=== PATIENT | male | born 1975 | race Caucasian/White ===

== ENCOUNTER → 2017-07-10 11:04 | Outpatient (CLI) | payer OTHER, SELFPAY ==
[2017-07-10 11:37] LABS: Hematocrit 46.9 % (42.0-52.0)
[2017-07-10 13:22] LABS: Alanine Aminotransferase 51 U/L (12-78); Albumin Level 4.5 gm/dL (3.4-5.0); Albumin/Globulin Ratio 1.4 (1.1-1.8); Alkaline Phosphatase 58 U/L (46-116); Anion Gap 12.6 mEq/L (5-15); Aspartate Amino Transferase 15 U/L (15-37); Bilirubin,Total 0.5 mg/dL (0.2-1.0); Blood Urea Nitrogen 20 mg/dL (7-18); Calcium 9.6 mg/dL (8.5-10.1); Carbon Dioxide 30 mmol/L (21.0-32.0); Chloride 103 mmol/L (98-107); Chol/HDL Ratio 5.4 (1-3.5); Cholesterol 241 mg/dL (140-200); Creatinine,Serum 1.18 mg/dL (0.70-1.30); Estimated Glomerular Filt Rate 67 ml/min (>60); GFR (African American) 81 ML/MIN (>60); Globulin 3.3 gm/dl (1.3-3.2); Glucose 117 mg/dL (74-106); HDL Cholesterol 45 mg/dL (27-67); LDL Cholesterol 154 mg/dL (0-130); Potassium 4.6 mmoL/L (3.5-5.1); Sodium 141 mmol/L (136-145); Total Protein,Serum 7.8 gm/dL (6.4-8.2); Triglycerides 212 mg/dL (30-200); VLDL Cholesterol 42 mg/dL (0-40)
== END ==
PROVIDERS: Visit Provider Internal Medicine
DX: E78.5 Hyperlipidemia, unspecified (principal); I10 Essential (primary) hypertension
CPT/HCPCS: 36415; 80053; 80061; 85014

== ENCOUNTER → 2017-10-27 11:12 | Outpatient (CLI) | payer OTHER, SELFPAY ==
[2017-10-27 11:38] LABS: Hemoglobin A1C 6.2 % (0.0-7.0)
[2017-10-27 11:49] LABS: Hematocrit 45.4 % (42.0-52.0)
[2017-10-27 12:13] LABS: Alanine Aminotransferase 75 U/L (12-78); Albumin Level 4.3 gm/dL (3.4-5.0); Albumin/Globulin Ratio 1.4 (1.1-1.8); Alkaline Phosphatase 62 U/L (46-116); Aspartate Amino Transferase 23 U/L (15-37); Bilirubin,Total 0.5 mg/dL (0.2-1.0); Blood Urea Nitrogen 15 mg/dL (7-18); Calcium 9.2 mg/dL (8.5-10.1); Carbon Dioxide 29 mmol/L (21.0-32.0); Chloride 106 mmol/L (98-107); Chol/HDL Ratio 3.6 (1-3.5); Cholesterol 176 mg/dL (140-200); Creatinine,Serum 1.12 mg/dL (0.70-1.30); Estimated Glomerular Filt Rate 71 ml/min (>60); GFR (African American) 86 ML/MIN (>60); Globulin 3.1 gm/dl (1.3-3.2); Glucose 135 mg/dL (74-106); HDL Cholesterol 49 mg/dL (27-67); LDL Cholesterol 90 mg/dL (0-130); Sodium 143 mmol/L (136-145); Total Protein,Serum 7.4 gm/dL (6.4-8.2); Triglycerides 185 mg/dL (30-200); VLDL Cholesterol 37 mg/dL (0-40)
== END ==
PROVIDERS: Visit Provider Internal Medicine
DX: E78.5 Hyperlipidemia, unspecified (principal); I10 Essential (primary) hypertension
CPT/HCPCS: 36415; 80053; 80061; 83036; 85014

== ENCOUNTER → 2018-01-04 17:09 | Outpatient (REF) | payer OTHER, SELFPAY ==
[2018-01-04 18:54] LABS: Uric Acid 7.1 mg/dL (2.6-7.2)
== END ==
LOC: LAB 17:09
PROVIDERS: Visit Provider Internal Medicine
DX: M10.9 Gout, unspecified (principal)
CPT/HCPCS: 84550

== ENCOUNTER → 2018-05-20 14:59 | Outpatient (CLI) | payer OTHER, SELFPAY ==
--- NOTE | 2018-05-20 15:02 | XR_ITS ---
XR elbow LT min 3V HISTORY: ITS.REASON: left elbow pain ORDERING PHYSICIAN: Flori Matta MD PATIENT AGE: 43 years COMPARISON: None FINDINGS: No fracture or dislocation. No significant arthritic change or displaced fat pad. A small enthesophyte is present at the olecranon region IMPRESSION: No acute finding
== END ==
PROVIDERS: PCP Internal Medicine; Visit Provider Orthopaedic Surgery
DX: M77.12 Lateral epicondylitis, left elbow (principal); M25.522 Pain in left elbow
CPT/HCPCS: 73080

== ENCOUNTER → 2018-08-01 14:54 | Outpatient (CLI) | payer OTHER, SELFPAY ==
--- NOTE | 2018-08-01 14:57 | MR_ITS ---
MR elbow LT wo con CLINICAL INDICATION: Left elbow pain ITS.REASON: lt elbow pain ORDERING PHYSICIAN: Flori Matta MD PATIENT AGE: 43 years Comparison: 05/20/2018 TECHNIQUE: Routine multiplanar multiecho sequences are obtained without contrast. FINDINGS: There is excessive patient motion artifact which does limit exam. Motion is present on every image. IMPRESSION: No obvious fracture. Small amount fluid is present in the elbow joint. Ligamentous evaluation is limited due to the motion artifact. The ulnar collateral ligament appears grossly unremarkable.. There is some mild lateral subluxation of the radial head possibly due to patient positioning there is questionable tear of the superior aspect of the lateral collateral ligament edema is also noted within the proximal aspect of the common extensor tendon with some bone marrow edema adjacent to this region consistent with lateral epicondylitis. Common flexor tendon appears intact. Bicipital tendon and brachioradialis tendon have an unremarkable appearance IMPRESSION: 1. Limited exam due to motion artifact. 2. The findings are compatible with lateral epicondylitis. 3. There may be a tear of the superior aspect of the radial collateral ligament. This could be artifactual as well due to motion. Consider repeat exam when patient is more able to lie still for confirmation
== END ==
PROVIDERS: PCP Internal Medicine; Visit Provider Orthopaedic Surgery
DX: M77.10 Lateral epicondylitis, unspecified elbow (principal)
CPT/HCPCS: 73221

== ENCOUNTER → 2019-11-17 09:46 | Outpatient (CLI) | payer OTHER, SELFPAY ==
[2019-11-17 11:31] LABS: Alanine Aminotransferase 29 U/L (12-78); Albumin Level 4.8 g/dl (3.5-5.0); Albumin/Globulin Ratio 1.9 (1.1-1.8); Alkaline Phosphatase 48 U/L (38-126); Anion Gap 15.2 mEq/L (5-15); Aspartate Amino Transferase 27 U/L (17-59); Bilirubin,Total 0.5 mg/dl (0.2-1.3); Blood Urea Nitrogen 23 mg/dl (9-20); Calcium 9.8 mg/dl (8.4-10.2); Carbon Dioxide 28 mmol/L (22.0-30.0); Chloride 102 mmol/L (98-107); Chol/HDL Ratio 3.2 (1-3.5); Cholesterol 184 mg/dl (140-200); Estimated Glomerular Filt Rate 65 ml/min (>60); GFR (African American) 79 ML/MIN (>60); Globulin 2.5 g/dL (1.3-3.2); Glucose 135 mg/dl (74-100); HDL Cholesterol 57 mg/dl (40-60); Potassium 4.2 mmoL/L (3.5-5.1); Sodium 141 mmol/L (136-145); Total Protein,Serum 7.3 g/dl (6.3-8.2); Triglycerides 146 mg/dl (30-150); Uric Acid 5.5 mg/dl (3.5-8.5); VLDL Cholesterol 29 mg/dL (0-40)
[2019-11-17 11:42] LABS: Direct LDL Cholesterol 120.56 mg/dL (100-129)
[2019-11-17 11:53] LABS: Hemoglobin A1C 6.9 % (4.0-6.0)
== END ==
PROVIDERS: Visit Provider Internal Medicine
DX: E11.9 Type 2 diabetes mellitus without complications (principal); E78.5 Hyperlipidemia, unspecified; I10 Essential (primary) hypertension
CPT/HCPCS: 36415; 80053; 80061; 83036; 84550

== ENCOUNTER → 2020-10-14 16:42 | Outpatient (CLI) | payer OTHER, SELFPAY ==
[2020-10-14 18:14] LABS: Basophils # 0.1 K/mm3 (0-0.2); Basophils % 1.2 % (0.1-2.0); Eosinophils # 0.4 K/mm3 (0.0-0.4); Hematocrit 42.2 % (42.0-52.0); Hemoglobin 14.5 g/dL (14.1-18.0); Lymphocytes # 1.9 K/mm3 (0.7-4.5); Lymphocytes % 25.3 % (10-50); Mean Corpuscular HGB Conc 34.3 g/dL (31.8-35.4); Mean Corpuscular Hemoglobin 29.4 pg (27.0-31.2); Mean Corpuscular Volume 85.7 fl (80-94); Mean Platelet Volume 7.8 fl (7.4-10.4); Monocytes # 0.4 K/mm3 (0.1-1.0); Monocytes % 5.4 % (1.7-9.3); Neutrophils # 4.7 K/mm3 (1.8-7.8); Neutrophils % 62.2 % (37.0-80.0); Platelet Count 227 K/mm3 (142-424); Red Blood Count 4.92 M/mm3 (4.60-6.20); Red Cell Distribution Width 12.7 % (11.5-17.5); White Blood Count 7.5 K/mm3 (4.8-10.8)
[2020-10-14 18:36] LABS: Alanine Aminotransferase 60 U/L (12-78); Albumin Level 4.9 g/dl (3.5-5.0); Albumin/Globulin Ratio 2.1 (1.1-1.8); Alkaline Phosphatase 50 U/L (38-126); Anion Gap 17.4 mEq/L (5-15); Aspartate Amino Transferase 34 U/L (17-59); Bilirubin,Total 0.4 mg/dl (0.2-1.3); Blood Urea Nitrogen 19 mg/dl (9-20); Calcium 9.5 mg/dl (8.4-10.2); Carbon Dioxide 28 mmol/L (22.0-30.0); Chloride 100 mmol/L (98-107); Cholesterol 180 mg/dl (140-200); Estimated Glomerular Filt Rate 72 ml/min (>60); GFR (African American) 87 ML/MIN (>60); Globulin 2.3 g/dL (1.3-3.2); Glucose 244 mg/dl (74-100); HDL Cholesterol 45 mg/dl (40-60); Potassium 4.4 mmoL/L (3.5-5.1); Sodium 141 mmol/L (136-145); Total Protein,Serum 7.2 g/dl (6.3-8.2); Triglycerides 227 mg/dl (30-150); Uric Acid 4.6 mg/dl (3.5-8.5); VLDL Cholesterol 45 mg/dL (0-40)
[2020-10-14 18:39] LABS: Hemoglobin A1C 8.2 % (4.0-6.0)
[2020-10-14 18:47] LABS: Direct LDL Cholesterol 112.95 mg/dL (100-129)
== END ==
PROVIDERS: Visit Provider Internal Medicine
DX: E11.9 Type 2 diabetes mellitus without complications (principal); I10 Essential (primary) hypertension; E78.5 Hyperlipidemia, unspecified; M10.9 Gout, unspecified
CPT/HCPCS: 80053; 80061; 82043; 83036; 84550; 85025

== ENCOUNTER → 2021-05-23 13:50 | Outpatient (CLI) | payer OTHER, SELFPAY ==
[2021-05-23 16:06] LABS: Hemoglobin A1C 7.1 % (4.0-6.0)
[2021-05-23 16:35] LABS: Alanine Aminotransferase 62 U/L (12-78); Albumin Level 5.2 g/dl (3.5-5.0); Albumin/Globulin Ratio 2.2 (1.1-1.8); Alkaline Phosphatase 53 U/L (38-126); Anion Gap 16.7 mEq/L (5-15); Aspartate Amino Transferase 40 U/L (17-59); Bilirubin,Total 0.7 mg/dl (0.2-1.3); Blood Urea Nitrogen 16 mg/dl (9-20); Calcium 9.5 mg/dl (8.4-10.2); Carbon Dioxide 26 mmol/L (22.0-30.0); Chloride 101 mmol/L (98-107); Cholesterol 211 mg/dl (140-200); Estimated Glomerular Filt Rate 90 ml/min (>60); GFR (African American) 109 ML/MIN (>60); Globulin 2.4 g/dL (1.3-3.2); Glucose 108 mg/dl (74-100); HDL Cholesterol 53 mg/dl (40-60); Potassium 3.7 mmoL/L (3.5-5.1); Sodium 140 mmol/L (136-145); Total Protein,Serum 7.6 g/dl (6.3-8.2); Triglycerides 217 mg/dl (30-150); Uric Acid 6.2 mg/dl (3.5-8.5); VLDL Cholesterol 43 mg/dL (0-40)
[2021-05-23 16:46] LABS: Direct LDL Cholesterol 137.43 mg/dL (100-129)
== END ==
PROVIDERS: Visit Provider Internal Medicine
DX: I10 Essential (primary) hypertension (principal); E11.9 Type 2 diabetes mellitus without complications; E78.5 Hyperlipidemia, unspecified; M10.9 Gout, unspecified
CPT/HCPCS: 80053; 80061; 83036; 84550

== ENCOUNTER → 2021-10-07 14:31 | Outpatient (CLI) | payer OTHER, SELFPAY | PROVIDERS: PCP Internal Medicine; Visit Provider Internal Medicine Gastroenterology | DX: Z01.812 Encounter for preprocedural laboratory examination (principal); Z20.822 Contact with and (suspected) exposure to COVID-19; Z12.11 Encounter for screening for malignant neoplasm of colon | CPT/HCPCS: C9803; U0003; U0005 ==

== ENCOUNTER 2021-10-09 07:50 | Day surgery (SDC) | payer OTHER, SELFPAY ==
[2021-10-09 08:02] VITALS: BP 157/100; PULSE 80; RESP 18; TEMP 36.4; O2SAT 100; BMI 30.8
--- NOTE | 2021-10-09 08:18 | P.PN_ITS ---
[facility] Anesthesia Checklist - Patient Identification Patient Identification: Arm Band - Structural Data Admitted From: Home Planned Operative Procedure/s: Colonoscopy Consent for Planned Operative Procedure(s) Verified: Yes - NPO Status Verified Time NPO: 05:30 - Airway Assessment C-Spine Mobility Assessed: Yes TMJ Mobility Assessed: Yes Dentition: Good Dentition - Neurological Assessment Level of Consciousness: Awake Hx Seizures: No Numbness or tingling in extremities: No - Anesthesia Plan Anesthesia Risk discussed: Yes Anesthesia Plan: Verified ASA Class: II Anesthesia Type: MAC [facility] History I have reviewed the patient's past medical history: Yes Medical History: Reports:: Gastroesophageal Reflux Disease(GERD), Hyperlipidemia, Hypertension Denies:: Cancer, Diabetes Mellitus Type 1, Diabetes Mellitus Type 2, Internal Pacemaker, MRSA, Seizures *Have you ever received a pneumonia vaccine?: No *Have you received a flu vaccine this season?: No Anesthesia experience/problems:: None Laterality Cases: Right: Arthroscopy Knee, Other, Bilateral: Tonsillectomy Other Surgeries: No: Pacemaker Amputation: No Fractures: Yes - *Social History Last grade of school completed: Some college Smoking Status: Current every day smoker Tobacco Type: smokeless tobacco # Packs/Day (cigarettes): 1 Alcohol Intake: current Alcohol Intake Frequency:: a few times a week Substance Use Type: denies use *Occupational Status:: employed Housing: house Household Members: spouse, family *Travel in the last 8 weeks: None Family Hx:: Diabetes, Hypertension
[2021-10-09 08:22] LABS: POC Glucose,Bedside 137 (70-110)
[2021-10-09 08:52] VITALS: O2SAT 100
[2021-10-09 09:06] VITALS: BP 131/75; PULSE 63; RESP 18; TEMP 36.5; O2SAT 95
--- NOTE | 2021-10-09 09:06 | HMH.SCOPE ---
- Procedure: Date: 10/09/21 Patient Date of :: 1975 Procedure Performed:: Screening colonoscopy Indications:: At appropriate age for colon screening Performing Provider:: Avril Coon MD Referring Provider:: Louie Barrow Sedation:: Propofol Procedure:: After placing the patient in the left lateral decubitus position, the colonoscopy was gently inserted into the rectum and under direct visualization advanced to the cecum which was identified by transillumination in the right lower quadrant, identification of the ileocecal valve, appendiceal orifice, and cecal strap. Color, texture, mucosa, and anatomy of the colon were carefully examined with the scope. Findings:: Anal canal: normal Rectum: normal Sigmoid colon: normal without polyps or inflammatory changes Descending colon: normal without polyps or inflammatory changes Splenic flexure: normal Transverse colon: normal without polyps or inflammatory changes Hepatic flexure: normal Ascending colon: normal without polyps or inflammatory changes Cecum: normal Terminal ileum: not visualized Impression: Normal colonoscopy Recommendations:: Follow up examination in about TEN years or so, sooner if clinically indicated. Complications:: None Estimated blood obtained (mL): 0
[2021-10-09 09:12] VITALS: BP 121/78; PULSE 63; RESP 18; O2SAT 97
[2021-10-09 09:17] VITALS: BP 120/81; PULSE 69; RESP 18; O2SAT 98
[2021-10-09 09:31] VITALS: BP 115/75; PULSE 64; RESP 18; O2SAT 99
== END 2021-10-09 09:31 ==
LOC: OUTP 07:51
PROVIDERS: PCP Internal Medicine; Visit Provider Internal Medicine Gastroenterology
PROC: 0DJD8ZZ Inspection of Lower Intestinal Tract, Via Natural or Artificial Opening Endoscopic (ICD-10-PCS; CPT 45378; principal; 2021-10-09 09:00)
DX: Z12.11 Encounter for screening for malignant neoplasm of colon (principal); K21.9 Gastro-esophageal reflux disease without esophagitis; E78.5 Hyperlipidemia, unspecified; I10 Essential (primary) hypertension; Z72.0 Tobacco use; Z79.899 Other long term (current) drug therapy
CPT/HCPCS: 45378; 82962

== ENCOUNTER → 2021-12-26 14:19 | Outpatient (CLI) | payer OTHER, SELFPAY ==
[2021-12-26 14:50] LABS: Basophils # 0.1 K/mm3 (0-0.2); Basophils % 1.2 % (0.1-2.0); Eosinophils # 0.5 K/mm3 (0.0-0.4); Eosinophils % 7.3 % (0.1-12.0); Hematocrit 45.6 % (42.0-52.0); Lymphocytes # 1.5 K/mm3 (0.7-4.5); Lymphocytes % 24.3 % (10-50); Mean Corpuscular HGB Conc 32.9 g/dL (31.8-35.4); Mean Corpuscular Hemoglobin 30.3 pg (27.0-31.2); Mean Corpuscular Volume 91.9 fl (80-94); Mean Platelet Volume 8.5 fl (7.4-10.4); Monocytes # 0.3 K/mm3 (0.1-1.0); Neutrophils # 3.8 K/mm3 (1.8-7.8); Neutrophils % 62.2 % (37.0-80.0); Platelet Count 258 K/mm3 (142-424); Red Blood Count 4.96 M/mm3 (4.60-6.20); Red Cell Distribution Width 12.6 % (11.5-17.5); White Blood Count 6.2 K/mm3 (4.8-10.8)
[2021-12-26 15:15] LABS: Alanine Aminotransferase 67 U/L (12-78); Albumin Level 4.4 g/dl (3.5-5.0); Albumin/Globulin Ratio 1.8 (1.1-1.8); Alkaline Phosphatase 62 U/L (38-126); Anion Gap 14.2 mEq/L (5-15); Aspartate Amino Transferase 49 U/L (17-59); Bilirubin,Total 0.3 mg/dl (0.2-1.3); Blood Urea Nitrogen 13 mg/dl (9-20); Calcium 8.9 mg/dl (8.4-10.2); Carbon Dioxide 27 mmol/L (22.0-30.0); Chloride 101 mmol/L (98-107); Chol/HDL Ratio 4.2 (1-3.5); Cholesterol 191 mg/dl (140-200); Estimated Glomerular Filt Rate 80 ml/min (>60); GFR (African American) 97 ML/MIN (>60); Globulin 2.5 g/dL (1.3-3.2); Glucose 139 mg/dl (74-100); HDL Cholesterol 45 mg/dl (40-60); Potassium 4.2 mmoL/L (3.5-5.1); Sodium 138 mmol/L (136-145); Total Protein,Serum 6.9 g/dl (6.3-8.2); Triglycerides 212 mg/dl (30-150); Uric Acid 5.7 mg/dl (3.5-8.5); VLDL Cholesterol 42 mg/dL (0-40)
[2021-12-26 15:26] LABS: Direct LDL Cholesterol 121.14 mg/dL (100-129)
[2021-12-26 15:41] LABS: Microalbumin/Creatinine Ratio 80.1
[2021-12-26 15:42] LABS: Creatinine,Urine Random 74 mg/dL (Not Estab.)
== END ==
PROVIDERS: PCP Internal Medicine; Visit Provider Internal Medicine
DX: I10 Essential (primary) hypertension (principal); E78.5 Hyperlipidemia, unspecified; E11.9 Type 2 diabetes mellitus without complications; M10.9 Gout, unspecified; Z79.84 Long term (current) use of oral hypoglycemic drugs
CPT/HCPCS: 80053; 80061; 82043; 82570; 84550; 85025

== ENCOUNTER → 2022-05-08 13:19 | Outpatient (CLI) | payer OTHER, SELFPAY ==
[2022-05-08 15:58] LABS: Alanine Aminotransferase 57 U/L (12-78); Albumin Level 4.8 g/dl (3.5-5.0); Albumin/Globulin Ratio 2.1 (1.1-1.8); Alkaline Phosphatase 44 U/L (38-126); Anion Gap 14.2 mEq/L (5-15); Aspartate Amino Transferase 37 U/L (17-59); Bilirubin,Total 0.5 mg/dl (0.2-1.3); Blood Urea Nitrogen 19 mg/dl (9-20); Calcium 9.1 mg/dl (8.4-10.2); Carbon Dioxide 28 mmol/L (22.0-30.0); Chloride 104 mmol/L (98-107); Cholesterol 156 mg/dl (140-200); Estimated Glomerular Filt Rate 71 ml/min (>60); GFR (African American) 86 ML/MIN (>60); Globulin 2.3 g/dL (1.3-3.2); Glucose 186 mg/dl (74-100); HDL Cholesterol 39 mg/dl (40-60); Potassium 4.2 mmoL/L (3.5-5.1); Sodium 142 mmol/L (136-145); Total Protein,Serum 7.1 g/dl (6.3-8.2); Triglycerides 111 mg/dl (30-150); Uric Acid 5.1 mg/dl (3.5-8.5); VLDL Cholesterol 22 mg/dL (0-40)
== END ==
PROVIDERS: PCP Internal Medicine; Visit Provider Internal Medicine
DX: I10 Essential (primary) hypertension (principal); E78.5 Hyperlipidemia, unspecified; M10.9 Gout, unspecified; F17.220 Nicotine dependence, chewing tobacco, uncomplicated
CPT/HCPCS: 80053; 80061; 84550

== ENCOUNTER → 2022-08-07 12:03 | Outpatient (CLI) | payer OTHER, SELFPAY ==
[2022-08-07 13:52] LABS: Hemoglobin A1C 8.6 % (4.0-6.0)
== END ==
PROVIDERS: PCP Internal Medicine; Visit Provider Internal Medicine
DX: E11.9 Type 2 diabetes mellitus without complications (principal); I10 Essential (primary) hypertension; Z79.84 Long term (current) use of oral hypoglycemic drugs
CPT/HCPCS: 83036

== ENCOUNTER → 2022-11-06 15:24 | Outpatient (CLI) | payer OTHER, SELFPAY ==
[2022-11-06 16:07] LABS: Basophils % 0.7 % (0.1-2.0); Eosinophils # 0.4 K/mm3 (0.0-0.4); Eosinophils % 6.8 % (0.1-12.0); Hematocrit 44.5 % (42.0-52.0); Hemoglobin 14.4 g/dL (14.1-18.0); Lymphocytes # 1.8 K/mm3 (0.7-4.5); Lymphocytes % 34.2 % (10-50); Mean Corpuscular HGB Conc 32.4 g/dL (31.8-35.4); Mean Corpuscular Hemoglobin 27.8 pg (27.0-31.2); Mean Corpuscular Volume 85.8 fl (80-94); Mean Platelet Volume 8.7 fl (7.4-10.4); Monocytes # 0.3 K/mm3 (0.1-1.0); Monocytes % 5.2 % (1.7-9.3); Neutrophils # 2.8 K/mm3 (1.8-7.8); Neutrophils % 53.1 % (37.0-80.0); Platelet Count 213 K/mm3 (142-424); Red Blood Count 5.18 M/mm3 (4.60-6.20); White Blood Count 5.3 K/mm3 (4.8-10.8)
[2022-11-06 16:43] LABS: Hemoglobin A1C 6.7 % (4.0-6.0)
[2022-11-06 16:53] LABS: Alanine Aminotransferase 36 U/L (12-78); Albumin Level 5.1 g/dl (3.5-5.0); Albumin/Globulin Ratio 2.2 (1.1-1.8); Alkaline Phosphatase 37 U/L (38-126); Anion Gap 16.2 mEq/L (5-15); Aspartate Amino Transferase 27 U/L (17-59); Bilirubin,Total 0.4 mg/dl (0.2-1.3); Blood Urea Nitrogen 19 mg/dl (9-20); Calcium 9.5 mg/dl (8.4-10.2); Carbon Dioxide 28 mmol/L (22.0-30.0); Chloride 104 mmol/L (98-107); Chol/HDL Ratio 3.2 (1-3.5); Cholesterol 149 mg/dl (140-200); Estimated Glomerular Filt Rate 71 ml/min (>60); GFR (African American) 86 ML/MIN (>60); Globulin 2.3 g/dL (1.3-3.2); Glucose 92 mg/dl (74-100); HDL Cholesterol 47 mg/dl (40-60); Potassium 4.2 mmoL/L (3.5-5.1); Sodium 144 mmol/L (136-145); Total Protein,Serum 7.4 g/dl (6.3-8.2); Triglycerides 64 mg/dl (30-150); VLDL Cholesterol 13 mg/dL (0-40)
[2022-11-06 17:04] LABS: Direct LDL Cholesterol 82.53 mg/dL (100-129)
== END ==
PROVIDERS: PCP Internal Medicine; Visit Provider Internal Medicine
DX: E11.9 Type 2 diabetes mellitus without complications (principal); I10 Essential (primary) hypertension; E78.5 Hyperlipidemia, unspecified; M10.9 Gout, unspecified; Z79.84 Long term (current) use of oral hypoglycemic drugs
CPT/HCPCS: 80053; 80061; 83036; 85025

== ENCOUNTER 2023-06-11 14:39 | Outpatient (CLI) | payer OTHER, SELFPAY ==
[2023-06-11 16:03] LABS: Alanine Aminotransferase 42 U/L (12-78); Albumin Level 4.8 g/dl (3.5-5.0); Albumin/Globulin Ratio 2.2 (1.1-1.8); Alkaline Phosphatase 42 U/L (38-126); Anion Gap 14.5 mEq/L (5-15); Aspartate Amino Transferase 34 U/L (17-59); Bilirubin,Total 0.4 mg/dl (0.2-1.3); Blood Urea Nitrogen 21 mg/dl (9-20); Calcium 9.6 mg/dl (8.4-10.2); Carbon Dioxide 29 mmol/L (22.0-30.0); Chloride 103 mmol/L (98-107); Chol/HDL Ratio 3.2 (1-3.5); Cholesterol 161 mg/dl (140-200); Estimated Glomerular Filt Rate 64 ml/min (>60); GFR (African American) 78 ML/MIN (>60); Globulin 2.2 g/dL (1.3-3.2); Glucose 109 mg/dl (74-100); HDL Cholesterol 50 mg/dl (40-60); Potassium 4.5 mmoL/L (3.5-5.1); Sodium 142 mmol/L (136-145); Triglycerides 72 mg/dl (30-150); Uric Acid 4.4 mg/dl (3.5-8.5); VLDL Cholesterol 14 mg/dL (0-40)
[2023-06-11 16:14] LABS: Direct LDL Cholesterol 83.73 mg/dL (100-129)
[2023-06-11 16:17] LABS: Hemoglobin A1C 6.5 % (4.0-6.0)
[2023-06-11 16:32] LABS: Prostate Specific Ag Screen 0.8 ng/ml (0.0-4.0)
== END 2023-06-11 23:59 ==
PROVIDERS: PCP Internal Medicine; Visit Provider Internal Medicine
DX: E11.9 Type 2 diabetes mellitus without complications (principal); E78.5 Hyperlipidemia, unspecified; M10.9 Gout, unspecified; Z12.5 Encounter for screening for malignant neoplasm of prostate
CPT/HCPCS: 80053; 80061; 83036; 84550; G0103